=== PATIENT | female | born 1985 | race African-American/Black ===

== ENCOUNTER → 2016-12-25 | Outpatient (CLI) | payer OTHER ==
--- NOTE | ~2016-12-25 | EE ---
Unit #: [id number] #: [id number] Patient: AYSE PIZARRO [id number] [address] [address] [id number] O MR#: [id number] NAME: AYSE PIZARRO : 1985 SEX: F STUDY DATE/TIME: 12/25/2016 UNIT: [facility] ROOM: STUDY DESCRIPTION: Attending Physician: Ryland Mendez II., M.D. Referring Physician: Ryland Mendez II., M.D. Primary Care Physician: [facility] NEURODIAGNOSTICS REPORT EXAM EEG. REASON FOR STUDY Seizures. TECH Kari. TECHNICAL INFORMATION This is a routine EEG performed using the standard international 10/20 system electrode placement. Photic stimulation was performed. Hyperventilation was performed. REPORT Throughout the entire study, the best background rhythm seen is approximately 10 Hz. This rhythm is seen in both posterior head regions symmetrically and does attenuate to eye opening and closure. Photic stimulation was performed which did not elicit any epileptiform abnormalities. However, good photic driving response was seen. Hyperventilation was also performed which did not reproduce any abnormal buildup. Throughout the entire study, there were no electrographic seizures recorded nor were there any epileptiform abnormalities seen. There was no sleep recorded during the EEG. INTERPRETATION This is a normal awake EEG. A normal EEG does not rule out the possibility of seizure disorder. Clinical correlation is advised. Dictated by... Ryland Mendez II., M.D. GWS/radha TD: 12/27/2016 13:40 JOB #: [id number] Unit #: [id number] #: [id number] Patient: AYSE PIZARRO NEURODIAGNOSTICS REPORT Page 1 of 1 X NEURODIAGNOSTICS REPORT
--- NOTE | ~2016-12-25 | MR17 ---
[facility] A Service [facility][1] RADIOLOGY TEXT RESULTS PATIENT: AYSE PIZARRO LOCATION: [facility] : [birth year] UNIT #: [id number] AGE: [address]: Ryland Mendez II, MD SEX: F ORDER DR: [id number] [facility] [address] [facility]. [place], [place] [address] [id number] O MR#: [id number] Acc #: [id number] NAME: AYSE PIZARRO : 1985 SEX: F STUDY DATE/TIME: 12/25/2016 9:16 UNIT: [facility] ROOM: STUDY DESCRIPTION: MR Brain WWo Contrast Attending Physician: Ryland Mendez II., M.D. Referring Physician: Ryland Mendez II., M.D. Ordering Physician: Ryland Mendez II., M.D. Primary Care Physician: [facility] REPORT This report is preliminary unless electronic signature is present. EXAM Brain MRI with and without contrast. HISTORY Seizure disorder. Seizures her entire life, but most recently January 2016. TECHNIQUE Multiplanar imaging brain was performed with and without contrast. 18 mL of MultiHance was used. FINDINGS There is no evidence of abnormal restricted diffusion on the diffusion weighted images. The routine brain images show normal ventricular size. No white matter signal abnormalities are seen. There is no evidence of mass lesion, hemorrhage or edema. The temporal lobes are symmetric. There is no evidence of monte matter heterotopia. Cortical folding pattern is symmetric. No evidence of recent or remote hemorrhage. Postcontrast imaging shows no abnormal enhancement. IMPRESSION Negative brain MRI. Dictated by... Oneil Jackson M.D. THIS IS AN ELECTRONICALLY VERIFIED REPORT Oneil Jackson M.D. at 12/26/2016 4:51 PM RLF/gz TD: 12/26/2016 13:16 JOB #: [id number] MRI CENTER REPORT [facility] A Service of [facility] RADIOLOGY TEXT RESULTS PATIENT: AYSE PIZARRO [id number] [birth year] UNIT #: [id number] AGE: [address]: Ryland Mendez II, MD SEX: F ORDER DR: Page 1 of 1 COPY
== END | disposition home or self-care (01) ==
LOC: CMRI 08:51
DX: R56.9 Unspecified convulsions (principal)
CPT/HCPCS: 70553; 95816; A9577